=== PATIENT | male | born 1980 | race Caucasian/White ===

== ENCOUNTER 2018-12-04 08:15 | Outpatient (CLI) | payer OTHER ==
--- NOTE | 2018-12-04 08:48 | RAD ---
Exam: 2 views abdomen HISTORY: Nausea. Diarrhea. Rectal bleeding. Abdominal pain. GERD FINDINGS: Nonspecific bowel gas pattern. No suspicious densities in the abdomen or pelvis. No pneumop eritoneum. No evidence of bowel distention or bowel dilatation. No differential air-fluid levels. IMPRESSION: Nonspecific bowel gas pattern.
== END 2018-12-04 08:16 | disposition home or self-care (01) ==
LOC: RAD 08:15
PROVIDERS: ATTEND Internal Medicine Gastroenterology
DX: R10.9 Unspecified abdominal pain (principal); R11.0 Nausea; R19.7 Diarrhea, unspecified; K21.9 Gastro-esophageal reflux disease without esophagitis; K62.5 Hemorrhage of anus and rectum
CPT/HCPCS: 74019

== ENCOUNTER 2020-05-05 12:33 | Outpatient (CLI) | payer OTHER ==
--- NOTE | 2020-05-05 14:00 | MRI ---
Exam: Brain MRI with and without contrast HISTORY: Increasing cortical heterotopia, double vision. Keratoconus of the right eye. COMPARISON: None FINDINGS: Brain MRI: Gradient echo sequence: No hemorrhage Calvarium: Appropriate T1 marrow signal intensity Midline brain parenchyma: Unremarkable Cerebrum:No parenchymal mass, mass effect or midline shift. Brain volume is age-appropriate. Cortical bose-white matter differentiation is preserved. No significant T2 or FLAIR white matter hyperintensities Ventricles: No evidence of hydrocephalus. Sinuses and mastoid air cells: Adequate aeration Diffusion: Central arterial flow is maintained. Absent restricted diffusion. Postcontrast images: No pathologic enhancement of the brain parenchyma. Orbit MRI: There is appropriate signal intensity of the optic chiasm and prechiasmatic optic nerves. Additional is appropriate signal intensity in the intracranial, intraorbital optic nerves. No abnormal enhancement. There is appropriate signal/symmetric size and signal intensity of the ocular r ectus muscles. Both globes are intact. No abnormal signal intensity in the intraconal or extraconal fat. Visualized lacrimal glands have appropriate signal intensity. Bilateral ocular lenses are approp riately located. IMPRESSION: 1. No acute intracranial process 2. No abnormal signal intensity in the left or right orbit. Transcribed Date/Time: 05/05/2020 2:03 PM
[2020-05-05] MEDS ORDERED: Magnevist 469MG/ML 20 ML VIAL ONE (14:16)
== END 2020-05-05 12:34 | disposition home or self-care (01) ==
LOC: MRI 12:33
PROVIDERS: ATTEND Family Medicine
DX: H18.601 Keratoconus, unspecified, right eye (principal)
CPT/HCPCS: 70553

== ENCOUNTER 2020-09-02 12:41 | Outpatient (CLI) | payer OTHER | END 2020-09-02 12:42 | disposition home or self-care (01) | LOC: ULT 12:41 | PROVIDERS: ATTEND Family Medicine | DX: N50.811 Right testicular pain (principal) | CPT/HCPCS: 76870; 93976 ==

== ENCOUNTER 2021-01-25 13:38 | Outpatient (CLI) | payer OTHER | END 2021-01-25 13:39 | disposition home or self-care (01) | LOC: ULT 13:38 | PROVIDERS: ATTEND Family Medicine | DX: R10.11 Right upper quadrant pain (principal); K76.0 Fatty (change of) liver, not elsewhere classified | CPT/HCPCS: 76705 ==